=== PATIENT | female | born 1960 | race Two or more races ===

== ENCOUNTER 2019-08-07 12:59 | Emergency (ER) | payer SELFPAY ==
[~2019-08-07] VITALS: Ht 165.1 cm; Wt 66.0 kg
[2019-08-07] MEDS: LORAZEPAM 2MG/ML CPJ IM PRN (13:11)
[2019-08-07] MEDS: HALOPERIDOL LACTATE 5MG/ML VIAL IM ONE (13:11)
[2019-08-07] MEDS: SODIUM CHLORIDE 0.9% 1,000 ML IV ONE (14:14)
[2019-08-07 15:06] LABS: BASOPHILS % 0.5 % (0.0-2.0); EOSINOPHILS % 1.2 % (0.0-5.0); HEMATOCRIT. 31.2 % (36.0-48.0); HEMOGLOBIN. 10.7 g/dL (12.0-16.0); LYMPHOCYTES % 24.5 % (20.0-50.0); MEAN CORPUSCULAR HEMOGLOBIN 33.9 pg (28.0-32.0); MEAN CORPUSCULAR VOLUME 99.2 fL (81.0-99.0); MEAN PLATELET VOLUME 7.8 fl (7.4-10.4); MONOCYTES % 9.7 % (2.0-8.0); NEUTROPHILS % 64.1 % (40.0-76.0); PLATELET 226 x1000/uL (130-400); RED BLOOD CELL COUNT 3.15 mill/uL (4.2-5.4); RED CELL DISTRIBUTION WIDTH 13.3 % (11.6-14.6)
[2019-08-07 15:22] LABS: CHLORIDE 110 mEq/L (98-107)
[2019-08-07 15:25] LABS: ETHANOL BLOOD < 10 mg/dL
[2019-08-07 15:51] LABS: CLARITY URINE CLOUDY (CLEAR); COLOR URINE YELLOW (YELLOW); KETONES URINE TRACE (NEGATIVE); LEUKOCYTE ESTERASE URINE NEGATIVE (NEGATIVE); NITRITE URINE NEGATIVE (NEGATIVE); OCCULT BLOOD URINE NEGATIVE (NEGATIVE); PH URINE 5.5 (4.5-8.0); PROTEIN URINE 2+ (NEGATIVE); SPECIFIC GRAVITY URINE 1.035 (1.005-1.030); UROBILINOGEN URINE 0.2 E.U./dL (0.2-1.0)
[2019-08-07 16:06] LABS: METHADONE URINE SCREEN NEGATIVE (NEGATIVE)
[2019-08-07 16:07] LABS: *BARBITURATES SCREEN URINE NEGATIVE (NEGATIVE); *BENZODIAZEPINES SCREEN URINE NEGATIVE (NEGATIVE); CANNABINOID URINE SCREEN NEGATIVE (NEGATIVE); OPIATES URINE SCREEN NEGATIVE (NEGATIVE); PHENCYCLIDINE URINE SCREEN NEGATIVE (NEGATIVE)
[2019-08-07 16:08] LABS: *AMPHETAMINES SCREEN URINE NEGATIVE (NEGATIVE)
[2019-08-07 16:10] LABS: *COCAINE SCREEN URINE NEGATIVE (NEGATIVE)
[2019-08-09 09:00] VITALS: BP 113/58
== END 2019-08-09 14:55 | disposition home or self-care (01) ==
LOC: ER 12:59
DX: F20.9 Schizophrenia, unspecified (principal); R45.1 Restlessness and agitation; R41.82 Altered mental status, unspecified; E11.9 Type 2 diabetes mellitus without complications; Z98.890 Other specified postprocedural states
CPT/HCPCS: 36415; 80053; 80305; 80307; 80320; 80329; 81003; 82140; 84443; 85025; 93005; 96360; 96361; 96372; 99284; J1630; J2060; J7030; G0480